=== PATIENT | female | born 1960 | race Hispanic/Latino ===

== ENCOUNTER 2022-01-12 20:56 | Emergency (ER) | payer OTHER ==
[~2022-01-12] VITALS: Ht 149.9 cm; Wt 66.2 kg
[~2022-01-12 20:56] MED LIST: LABETALOL 20MG VIAL IV ONE
[2022-01-12 21:19] LABS: BASOPHILS % (AUTO) 0.7 % (0.0-5.0); EOSINOPHILS % (AUTO) 3.7 % (0.0-8.0); HEMATOCRIT 41.1 % (36-48); LYMPHOCYTES % (AUTO) 31.5 % (21.0-51.0); MEAN CORPUSCULAR HEMOGLOBIN 28.5 pg (27.0-33.0); MEAN CORPUSCULAR HGB CONC 33.3 g/dL (32.0-36.0); MEAN CORPUSCULAR VOLUME 85.4 fL (79-99); MONOCYTES % (AUTO) 7.4 % (3.0-13.0); NEUTROPHILS % (AUTO) 56.6 % (40.0-77.0); PLATELET COUNT (AUTO) 255 K/uL (130-400); RED BLOOD CELL COUNT(AUTO) 4.81 MIL/uL (4.00-5.50); RED CELL DISTRIBUTION WIDTH 12.8 % (11.0-15.5); WHITE BLOOD COUNT (AUTO) 8.1 K/uL (4.8-10.8)
[2022-01-12 21:30] LABS: CREATININE 0.8 mg/dL (0.5-1.5); POTASSIUM 4.4 mmol/L (3.5-5.1)
[2022-01-12 21:37] LABS: ALBUMIN 3.8 g/dL (3.5-5.0); BILIRUBIN,TOTAL 0.3 mg/dL (0.2-1.0); TOTAL PROTEIN, SERUM 7.8 g/dL (6.0-8.3)
[2022-01-12] MEDS ORDERED: HYDRALAZINE 20MG/ML VIAL IM ONE (22:30)
[2022-01-12] MEDS ORDERED: ASPIRIN 81MG CHEW TAB PO ONE (22:30)
[2022-01-12] MEDS ORDERED: NITROGLYCERIN 0.4 MG SL TAB SL PRN (22:30)
[2022-01-13] MEDS ORDERED: LABETALOL 20MG VIAL IV ONE
[2022-01-13] MEDS ORDERED: TRIA1TAB93 PO (00:44)
[2022-01-13] MEDS ORDERED: AMLO5TAB4 PO (00:44)
[2022-01-13] MEDS ORDERED: NITR0.4T50 SL (00:48)
[2022-01-13 01:01] VITALS: BP 145/66
== END 2022-01-13 01:02 | disposition home or self-care (01) ==
LOC: EDH 20:56
DX: I10 Essential (primary) hypertension (principal); R07.89 Other chest pain; E78.00 Pure hypercholesterolemia, unspecified; F17.200 Nicotine dependence, unspecified, uncomplicated
CPT/HCPCS: 36415; 71045; 80053; 84484 ×2; 85025; 93005; 96372; 96374; 99285; J0360; J3490

== ENCOUNTER 2022-03-30 11:56 | Emergency (ER) | payer OTHER ==
[~2022-03-30] VITALS: Ht 154.9 cm; Wt 65.8 kg
[~2022-03-30 11:56] MED LIST changes: +AMLO5TAB4 PO; -LABETALOL 20MG VIAL IV ONE; +NITR0.4T50 SL; +TRIA1TAB93 PO
[2022-03-30 11:57] VITALS: BP 143/66
[2022-03-30 12:14] LABS: BASOPHILS % (AUTO) 0.9 % (0.0-5.0); EOSINOPHILS % (AUTO) 2.2 % (0.0-8.0); HEMATOCRIT 37.7 % (36-48); LYMPHOCYTES % (AUTO) 21.3 % (21.0-51.0); MEAN CORPUSCULAR HEMOGLOBIN 29.4 pg (27.0-33.0); MEAN CORPUSCULAR HGB CONC 34.7 g/dL (32.0-36.0); MEAN CORPUSCULAR VOLUME 84.5 fL (79-99); MONOCYTES % (AUTO) 5.7 % (3.0-13.0); NEUTROPHILS % (AUTO) 69.5 % (40.0-77.0); PLATELET COUNT (AUTO) 274 K/uL (130-400); RED BLOOD CELL COUNT(AUTO) 4.46 MIL/uL (4.00-5.50); RED CELL DISTRIBUTION WIDTH 12.5 % (11.0-15.5); WHITE BLOOD COUNT (AUTO) 8.1 K/uL (4.8-10.8)
[2022-03-30 12:40] LABS: POTASSIUM 3.4 mmol/L (3.5-5.1)
[2022-03-30 12:52] LABS: ALBUMIN 3.8 g/dL (3.5-5.0); TOTAL PROTEIN, SERUM 7.7 g/dL (6.0-8.3)
== END 2022-03-30 14:09 | disposition home or self-care (01) ==
LOC: EDH 11:56
DX: M79.602 Pain in left arm (principal); E78.00 Pure hypercholesterolemia, unspecified; I10 Essential (primary) hypertension; F17.200 Nicotine dependence, unspecified, uncomplicated; Z79.899 Other long term (current) drug therapy
CPT/HCPCS: 36415; 71045; 80053; 82550; 83874; 84484; 85025; 93005

== ENCOUNTER 2025-04-07 11:29 | Emergency (ER) | payer OTHER, MEDICARE ==
[~2025-04-07] VITALS: Ht 152.4 cm; Wt 65.3 kg
[2025-04-07] MEDS ORDERED: METH4TAB3 PO (11:47)
--- NOTE | 2025-04-07 11:49 | ERN ---
ED Note History of Present Illness Stated Complaint: FEVER Chief Complaint: Congestion Time Seen by MD: 11:30 Dictation: PATIENT IS A 64-YEAR-OLD FEMALE HERE WITH HER DAUGHTER WITH COMPLAINTS SINUS CONGESTION/BODY ACHES AND A FRONTAL HEADACHE SHE HAS HAD FOR 3-4 DAYS. NO NAUSEA VOMITING NO DIARRHEA SHE HAS NO COUGH NO LOSS OF TASTE OR SMELL. SHE WAS DIAGNOSED AT [facility] THREE DAYS AGO WITH COVID-19 AND THE ONLY GUIDELINES THE PROVIDER TOLD HER AWARE TO TAKE TYLENOL OR MOTRIN AND DO NOT MIX IT WITH NYQUIL. NOT BEEN ABLE TO SEE HER PRIMARY CARE DOCTOR. SHE STATES SHE IS A TOBACCO ABUSER. Allergies: Coded Allergies: No Known Drug Allergies (Unverified Allergy, Unknown, 01/12/22) Home Meds Active Scripts Nitroglycerin (Nitroglycerin) 0.4 Mg Tab.subl, 0.4 MG SL STAT PRN for chest pain, #30 TAB.SL every 5 min x 3 Prov:STACEY BENITES MD 01/13/22 Triamterene/Hydrochlorothiazid (Maxzide 37.5 mg-25 mg Tablet) 1 Each Tablet, 1 EACH PO DAILY, #30 TAB Prov:STACEY BENITES MD 01/13/22 Amlodipine Besylate (Norvasc 5Mg Tab) 5 Mg Tablet, 5 MG PO DAILY, #30 TAB Prov:STACEY BENITES MD 01/13/22 Past Medical History Past Medical History: High Cholesterol, Hypertension Surgical History: Family History: CAD, HTN Social History: Smokers, Lives with family History: Not Applicable RN Note Reviewed/Agreed w/PFSH: Yes Review of System Dictation CONSTITUTIONAL: NEGATIVE EXCEPT FOR HPI HEAD/FACE: NEGATIVE EXCEPT FOR HPI EENT: NEGATIVE EXCEPT FOR HPI SINUS CONGESTION RESPIRATORY: NEGATIVE EXCEPT FOR HPI GASTROINTESTINAL/ABDOMINAL: NEGATIVE EXCEPT FOR HPI GENITOURINARY: NEGATIVE EXCEPT FOR HPI MUSCULOSKELETAL: NEGATIVE EXCEPT FOR HPI MALAISE INTEGUMENTARY: NEGATIVE EXCEPT FOR HPI NEUROLOGICAL/PSYCH: NEGATIVE EXCEPT FOR HPI SINUS HEADACHE HEMATOLOGIC/LYMPHATIC: NEGATIVE EXCEPT FOR HPI ALL SYSTEMS NEGATIVE, EXCEPT NOTED ABOVE. 13 POINT REVIEW OF SYSTEMS ASSESSED AND ALL NEGATIVE EXCEPT FOR ABOVE. Initial Vital Sign VS Vital Signs Date Time Temp Pulse Resp B/P (MAP) Pulse Ox O2 Delivery O2 Flow Rate FiO2 04/07/25 11:30 100.2 103 18 129/66 97 Room Air 0 Physical Exam Dictation VITAL SIGNS REVIEWED MILD ACUTE DISTRESS, WELL DEVELOPED, NOURISHED. HEAD AND FACE: NON-TRAUMATIC. EYES: PERRL, PINK CONJUNCTIVAS, EYELID NO TRAUMA, ANTERIOR CHAMBER WITH ARCUS SENILIS. EARS: PINNAS INTACT AND NO SIGNS OF TRAUMA OR ERYTHEMA EAR CANALS CLEAR AND NO DISCHARGE TM NO ERYTHEMA NOSE: NO DISCHARGE, NO BLEEDING. OROPHARYNX: MOUTH NORMAL, TONGUE PINK, PHARYNX CLEAR,NO ERYTHEMA, TONSILS NO EXUDATES, NO ABSCESSES NOTED, MUCOUS MEMBRANE MOIST NECK: SUPPLE, NON-TENDER, NO THYROMEGALY, NO MASSES, NO JVD, NO BRUITS BREAST:DEFERRED CHEST:NO TENDERNESS, NO CREPITUS, NO PARADOXICAL MOVEMENT, NO RETRACTIONS LUNGS:CLEAR, WELL-VENTILATED, SYMMETRIC, NO RALES, NO WHEEZING, NO RHONCHI, NO STRIDOR, GOOD BREATH SOUNDS BILATERALLY HEART: REGULAR RATE, REGULAR RHYTHM, NO MURMUR, NO GALLOPS VASCULAR: NO PERIPHERAL EDEMA, ABDOMEN: SOFT, POSITIVE BOWEL SOUNDS, NONDISTENDED, NO GUARDING, NONTENDER, NO REBOUND, NO MASSES NO HEPATOMEGALY, NO SPLENOMEGALY, NO ARCE'S SIGN, NO HERNIAS. RECTAL: DEFERRED GENITAL: DEFERRED NEUROLOGICAL: NORMAL SPEECH, MOTOR FUNCTION INTACT, SENSORY FUNCTION INTACT MUSCULOSKELETAL: NECK NONTENDER, FULL RANGE OF MOTION, BACK NONTENDER, FULL RANGE OF MOTION, EXTREMITIES: NONTENDER, FULL RANGE OF MOTION SKIN: COLOR PINK, DRY, NO TURGOR, NO RASH, NO LACERATIONS, NO ABRASIONS, NO CONTUSIONS. LYMPHATIC: DEFERRED Results (Laboratory/Radiology) Labs Reviewed?: Yes ED Course ED Course Orders Procedure Category Date Status Time Ketorolac 60mg/2ml PHA 04/07/25 Verified (Toradol 60mg/2ml) 12:00 Dexamethasone 4mg/Ml PHA 04/07/25 Verified 1ml Vial (Dexametha 12:00 Vital Signs Date Time Temp Pulse Resp B/P (MAP) Pulse Ox O2 Delivery O2 Flow Rate FiO2 04/07/25 11:30 100.2 103 18 129/66 97 Room Air 0 1140/SPOKE TO PATIENT AND HER DAUGHTER AT LENGTH. SHE IS AWARE THAT THERE IS NO WINDOW NOW FOR USING PAXLOVID. I DID SUGGEST BLACKB[facility]Y [id number] HAS A HOMEOPATHIC REMEDY AND AN ANTIVIRAL AGENT. I WE WILL PUT HER ON ANTIHISTAMINES WE WILL GIVE HER A SHOT OF DECADRON AND TORADOL AND HAVE HER FOLLOW UP WITH HER DOCTOR WE WILL ALSO SUGGEST SHE STOPPED SMOKING Medical Decision Making MDM MEDICAL DECISION-MAKING BASED ON EMPIRIC TREATMENT FOR PALLIATIVE CARE FOR COVID-19 INFECTION. PATIENT WE WILL BE STRONGLY SUGGESTED TO STOP SMOKING TAKE ANTIHISTAMINE CLARITIN OR ZYRTEC [id number] DAILY SHE WILL BE GIVEN TORADOL 60 WITH DECADRON8 MG PRESCRIBED MEDROL DOSEPAK GIVEN REHYDRATION INSTRUCTIONS DX & DISP Disposition: Discharge Departure Impression: Primary Impression: COVID-19 Condition: Stable Scripts Methylprednisolone (Medrol) 4 Mg Tab.ds.pk 1 TAB PO AD for 6 Days, #21 TAB 0 Refills 6 on day 1 then reduce by one tablet daily until gone Prov: MAXI CALLAHAN NP 04/07/25 Additional Instructions: FOLLOW-UP WITH PRIMARY CARE PROVIDER IN 1 TO 2 DAYS. TAKE MEDICATIONS DIRECTED HERE IN THE EMERGENCY ROOM. OKAY TO CONTINUE HOME MEDICATIONS UNLESS OTHERWISE DISCUSSED DURING YOUR VISIT IN THE EMERGENCY ROOM TODAY. RETURN TO YOUR NEAREST EMERGENCY ROOM IF SYMPTOMS WORSEN OR IF THERE IS NO IMPROVEMENT. CALL 911 IF YOU NEED IMMEDIATE ASSISTANCE. TAKE TYLENOL OR MOTRIN [id number] NEEDED AND IF NO CONTRAINDICATIONS ARE PRESENT. INCREASE ORAL HYDRATION. A WOUND CULTURE OR URINE CULTURE WAS ORDERED HERE IN THE EMERGENCY ROOM DEPARTMENT PLEASE FOLLOW-UP WITH PRIMARY CARE PROVIDER AND ADVISE THEM TO GET REPEAT PORTS FROM OUR FACILITY. IF YOU HAD ANY DARIUS WRAP/SPLINTS THAT WERE APPLIED HERE, PLEASE DO NOT REMOVE THEM UNTIL YOU SEE YOUR PRIMARY CARE OR SPECIALTY. TAKE MEDROL DOSEPAK DIRECTED UNTIL GONE. ALTERNATE TYLENOL OR MOTRIN [id number] NEEDED FOR FEVER OR HEADACHE PAIN. INCREASE YOUR FLUID INTAKE. STRONGLY SUGGEST STOPPING TOBACCO USE. SUGGEST BLACK TRAN [id number] SUPPLEMENT FOR YOUR SUPPORTIVE CARE FOR COVID Referrals: SELF,REFERRAL (PCP) Time of Disposition: 11:46 I have reviewed the case, and I agree with, Diagnosis and Plan MAXI CALLAHAN NP Apr 07, 2025 11:49
[2025-04-07 12:12] VITALS: BP 123/66; PULSE 98; RESP 18; TEMP 101; O2SAT 98
== END 2025-04-07 12:31 | disposition home or self-care (01) ==
LOC: EDH 11:29
DX: U07.1 COVID-19 (principal); E78.00 Pure hypercholesterolemia, unspecified; I10 Essential (primary) hypertension; F17.200 Nicotine dependence, unspecified, uncomplicated; Z79.899 Other long term (current) drug therapy
CPT/HCPCS: 99284; 96372 ×2; J1100; J1885